=== PATIENT | male | born 1985 | race African-American/Black ===

== ENCOUNTER 2018-12-21 09:10 | Emergency (ER) | payer OTHER ==
[~2018-12-21] VITALS: Ht 177.8 cm; Wt 108.9 kg
[2018-12-21 09:16] VITALS: TEMP 98
[2018-12-21] MEDS ORDERED: METF500T PO (09:24)
[2018-12-21] MEDS ORDERED: LISI10TA11 PO (09:24)
[2018-12-21 11:09] LABS: PLATELET COUNT 324 K/uL (142-355)
[2018-12-21 11:12] LABS: POTASSIUM 3.9 mmol/L (3.6-5.2)
[2018-12-21 13:08] VITALS: BP 157/86
== END 2018-12-21 13:08 | disposition home or self-care (01) ==
LOC: ED 09:10
PROVIDERS: Family Medicine
DX: K52.9 Noninfective gastroenteritis and colitis, unspecified (principal)
CPT/HCPCS: 80053; 80307; 81000; 85027; 96365; 96374; 96375; 99284; J1885; J2405